=== PATIENT | male | born 1990 | race Caucasian/White ===

== ENCOUNTER 2021-01-19 10:31 | Outpatient (CLI) | payer OTHER, SELFPAY ==
--- NOTE | 2021-01-19 15:35 | P.NEURO_ITS ---
Neurology EEG Report General Information Date of Study: 01/19/21 TEST eeg DIAGNOSIS Seizure disorder CONDITION OF RECORDING awake drowsy and sleepy EEG NUMBER [id number] CLINICAL HISTORY patient reported he is on medication for seizures but has not had seizure in many years and wants to stop medications EEG DESCRIPTION basic resting occipital frequency consists of large amount of well-organized medium voltage 8 to 10 hertz per 2nd alpha admixed with minimal amount of low- voltage 15 to 18 hertz per 2nd beta. During drowsiness low-voltage beta activity seen diffusely admixed with waxing and waning posterior alpha rhythm. Hyperventilation not done. Photic stimulation produced normal drive. Bilateral symmetrical sleep activity seen during brief periods of sleep. Non paroxysmal. Nonfocal. Nonlateralizing. IMPRESSION Normal record with no evidence of seizure throughout the trace
== END 2021-01-19 10:32 | disposition home or self-care (01) ==
LOC: ANHNEURO 10:35
PROVIDERS: PCP Internal Medicine Infectious Disease; Visit Provider Psychiatry & Neurology Neurology
DX: R56.9 Unspecified convulsions (principal)
CPT/HCPCS: 95816

== ENCOUNTER 2022-03-14 09:33 | Outpatient (CLI) | payer OTHER, SELFPAY ==
--- NOTE | 2022-03-14 10:30 | NEURO_ITS ---
Impression: # History of bilateral hand numbness. # Bilateral Carpal Tunnel Syndrome. # Normal needle/EMG exam. # Clinical correlation recommended. Motor Nerve Conduction Upper Extremities Median Nerve Conduction Velocity (m/sec) Terminal Latency (msec) Response Voltage(mV) Elbow-Wrist Wrist Elbow Wrist Right 56 7.2 5 5 Left 56 8.2 3 4 Ulnar Nerve Conduction Velocity (m/sec) Terminal Latency (msec) Response Voltage(mV) Above Elbow Below Elbow Wrist Above Elbow Below Elbow Wrist Right 49 59 2.9 4 4 5 Left 51 51 2.7 5 6 6 F-Wave Latency Median (ms) Ulnar (ms) Right 28.5 28.9 Left 30.1 28.3 Sensory Nerve Conduction Upper Extremities Median Nerve Stimulation Terminal Latency (msec) Wrist/Digit Response Voltage (uV) Wrist Right 8.1/7.6 30/26 Left 7.2/8.1 34/26 Ulnar Nerve Stimulation Terminal Latency (msec) Wrist/Digit Response Voltage (uV) Wrist Right 3.2 22 Left 2.7 37 Radial Nerve Terminal Latency (msec) Response Voltage(mV) Right 2.1 28 Left 2.2 40 Left Right Muscles Examined Fibrillation Fasciculation Scarcity Voltage Duration Left Right Left Right Left Right Left Right Left Right Deltoid Biceps X X Brachioradialis Triceps X X Pronator Teres X X Ext Indicis X X Ext Digitorum X X Abd Poll Brev X X 1st Dorsal Interosseus Paraspinals MTDD
== END 2022-03-14 09:34 | disposition home or self-care (01) ==
LOC: ANHNEURO 09:34
PROVIDERS: PCP Internal Medicine Infectious Disease; Visit Provider Internal Medicine Infectious Disease
DX: G62.9 Polyneuropathy, unspecified (principal); G56.03 Carpal tunnel syndrome, bilateral upper limbs
CPT/HCPCS: 95886; 95911

== ENCOUNTER → 2024-01-13 13:15 | Outpatient (REF) | payer OTHER, SELFPAY | LOC: ANHLAB 13:15 | PROVIDERS: PCP Internal Medicine Infectious Disease; Visit Provider Plastic Surgery | DX: L72.11 Pilar cyst (principal) | CPT/HCPCS: 88305 ==

== ENCOUNTER 2024-04-07 10:07 | Outpatient (CLI) | payer OTHER, SELFPAY ==
[2024-04-07 10:57] LABS: Basophils Percent Auto 0.4 % (0.2-1.2); Eosinophils Absolute Auto 0.1 K/mm3 (0-0.3); Eosinophils Percent Auto 1.6 % (0-4.4); Hematocrit 45.7 % (42.0-52.0); Immature Granulocyte Absolute 0.03 K/mm3 (0.00-0.031); Immature Granulocyte Percent A 0.4 % (0-0.5); Lymphocytes Absolute Auto 1.21 K/mm3 (0.9-3.2); Lymphocytes Percent Auto 18.1 % (18.3-44.2); Mean Corpuscular HGB Conc 32.8 g/dl (32-36); Mean Corpuscular Hemoglobin 26.3 pg (26-34); Mean Corpuscular Volume 80.2 fl (80-100); Mean Platelet Volume 11.1 fl (7.4-10.4); Monocytes Absolute Auto 0.6 K/mm3 (0.1-0.6); Monocytes Percent Auto 9.6 % (2.6-8.5); Neutrophils Absolute Auto 4.7 K/mm3 (1.3-6.7); Neutrophils Percent Auto 69.9 % (45.5-73.1); Platelet Count Result 301 k/mm3 (150-375); Red Cell Distribution Width 13.3 % (11.5-14.5); White Blood Count 6.7 K/mm3 (4.5-10.0)
--- OUTSIDE RECORDS SUMMARY | 2024-04-07 11:00 | XMS_ITS | Clinical Summary ---
Author Organization [facility] Address [address] [place] [id number] Care Team Providers Care Blower Room Attendant Name Role Phone Felton Aguilar MD Primary Care Provider Allergies Active Allergy Reactions Criticality Noted Date Comments Diphenhydramine Swelling,Other (See comments) High 1 03/20/[address] (DEPAKOTE) 250 mg EC tablet Take 250 mg by mouth daily Active hydroCHLOROthiaz dariela (HYDRODIURIL) 12.5 mg tablet Take 25 mg by mouth daily Active lisinopriL (PRINIVIL,ZESTRI L) 5 mg tablet Take 10 mg by mouth daily Active Active Problems Problem Noted Date Diagnosed Date Phimosis 03/08/2021 Overview (03/08/2021): Added automatically from request for surgery [id number] Surgical History Surgery Date Site/Laterality Comments HIP SURGERY Right URINARY SURGERY 2021 Medical History Medical History Date Comments Hypertension Seizures (HCC) Asthma Mentally challenged Complication of general anesthesia Trouble waking up Family History Medical History Relation Name Comments Hypertension Other Seizures Other Relation Name Status Comments Other Social History Tobacco Use Types Packs/Day Years Used Date Smoking Tobacco: Never Smokeless Tobacco: Never AUDIT-C Answer Date Recorded Q1: How often do you have a drink containing alc ohol? Never 03/29/2021 Average Number of Drinks Not on file 022 Frequency of Binge Drinking Not on file 03/11 Sex and Gender Information Value Date Recorded Sex Assigned at Not on file Legal Sex Male 11:33 AM CDT Gender Identity Not on file Sexual Orientation Not on file Occupation Industry Job Start Date Job End Date Unemployed Not on file Not on file Not on file Obstetrics History Last Filed Vital Signs Vital Sign Reading Time Taken Comments Blood Pressure 126/79 04/26/2022 10:54 AM GOLF MANAGER Pulse 92 04/26/2022 10:54 AM GOLF MANAGER Temperature 36.7 ??C (98 ??F) 03/29/2021 3:49 PM GOLF MANAGER Respiratory Rate 16 03/29/2021 3:31 PM GOLF MANAGER Oxygen Saturation 97% 03/29/2021 3:31 PM GOLF MANAGER Inhaled Oxygen Concentration - - Weight 117.4 kg (258 lb 14.4 oz) 2022 10:54 AM GOLF MANAGER Height 177.8 cm (5' 10 ) 04/26/2022 10: 54 AM GOLF MANAGER Body Mass Index 37.15 04/26/2022 10:54 AM GOLF MANAGER Plan of Treatment Health Maintenance Due Date Last Done Comments Depression Screening 1989 Hepatitis C Screening 1989 Varicella Vaccines (1 of 2 - 13+ 2-dose series) 2002 Hepatitis B Screening 09/17/2007 Regular Well Visit/Exam 18-64 09/17/2007 DTaP/Tdap/Td Vaccine (2 - Td or Tdap) 03/10/2021 03/10/2011 Influenza Vaccine (#1) 2023 0, 02/13/2018, 01/22/2017, Additional history exists HPV Vaccines Aged Out No longer eligi ble based on patient's age to complete this topic Pneumococcal vaccine <65 Aged Out No longer eligible based on patient's age to complete this topic Insurance [facility] Care Teams Blower Room Attendant Relationship Specialty Start Date End Date Felton Aguilar MD [address] [place] [address] PCP - General Internal Medicine 01/09/21
--- OUTSIDE RECORDS SUMMARY | 2024-04-07 11:00 | XMS_ITS | CONTINUITY OF CARE DOCUMENT ---
Author Name anne marie eulaliadg Address Unknown Organization [facility] Address [address] [place] [address] Phone [phone] Care Team Providers Care Cardiac Rehabilitation Specialist Name Role Phone Sarita Moore MD Unavailable JAIRO EGLLER MD Unavailable JAIRO GELLER MD Unavailable PROBLEMS Condition Status Date Provider Notes Sinus tachycardia active Taylor Ventimiglia STEELSCOPE OPERATOR Hypertension benign essential active Taylor Ventimiglia STEELSCOPE OPERATOR Seizure disorder active Taylor Ventimiglia STEELSCOPE OPERATOR Obesity active Taylor Ventimiglia STEELSCOPE OPERATOR ALVIN, severe active Sarita Moore MD Cardiology examination active Sarita velazquez MD ENCOUNTERS Date Type Provider Location Encounter Diag nosis - In-person encounter Office Visit Sarita Moore MD [facility] Cardiology examination - In-person encounter Office Visit Sarita Moore MD [facility] - In-person encounter Office Visit Sarita Moore MD [facility] - In-person encounter Office Visit Sarita Moore MD [facility] - In-person encounter Office Visit Sarita Moore MD [facility] ALVIN, severe - In-person encounter Office Visit Sarita Moore MD [facility] Sinus tachycardiaHypertension benign essentialSeizure disorderObesity VITAL SIGNS Date Observation Value Provider Body Mass Index (Ratio) 41.76 kg/m2 Janelle Moore MD blood pressure, diastolic 100 mm[Hg] [facility], systolic 148 mm[Hg] Emily [facility] blood pressure, cuff size regular Сергей lopez Sr blood pressure, diastolic 100 mm[Hg] [facility], systolic 148 mm[Hg] [facility] [place] oxygen saturation, oximetry 98 % [facility] pulse rate 94 /min [facility] weight E&M 251 [lb_av] [facility] respiratory rate E&M 12 /min [facility] height E&M 65 [in_i] [facility] Body Mass Index (Ratio) 41.76 kg/m2 Janelle Moore MD blood pressure, diastolic 101 mm[Hg] [facility], systolic 158 mm[Hg] Emily [facility] blood pressure, cuff size regular [facility], diastolic 101 mm[Hg] Ja rret blood pressure, systolic 158 mm[Hg] Jar ret pulse rate 85 /min Reji respiratory rate E&M 12 /min Reji oxygen saturation, oximetry 96 % Reji weight E&M 251 [lb_av] Reji y height E&M 65 [in_i] Reji y Body Mass Index (Ratio) 44.09 kg/m2 Janelle Moore MD blood pressure, diastolic 94 mm[Hg] Sh deb Linda blood pressure, systolic 159 mm[Hg] She go Linda blood pressure, diastolic 100 mm[Hg] Li [facility] blood pressure, systolic 167 mm[Hg] Emily [facility] pulse rate 100 /min Mariajose Linda oxygen saturation, oximetry 97 % Mariajose Lidna respiratory rate E&M 18 /min Mariajose Linda weight E&M 265 [lb_av] Mariajose Linda blood pressure, cuff size regular Fariha Linda height E&M 65 [in_i] Mariajose Linda Body Mass Index (Ratio) 42.26 kg/m2 Ivett castro Bc blood pressure, cuff size large Ke rri Gruenenfelder blood pressure, diastolic 90 mm[Hg] Ke rri Gruenenfelder blood pressure, systolic 132 mm[Hg] Tim ri Yolanenfelder oxygen saturation, oximetry 97 % Beth Chela respiratory rate E&M 14 /min Beth G brittanienenfelder pulse rate 85 /min Beth Gruenenfe er weight E&M 254 [lb_av] Beth Gruenenfe er height E&M 65 [in_i] Beth Gruenenfe er Body Mass Index (Ratio) 43.26 kg/m2 Cesar Gonzales blood pressure, diastolic -1 mm[Hg] Li nkLogic blood pressure, systolic 158 mm[Hg] Emily [facility] blood pressure, diastolic 93 mm[Hg] St fela Hickman blood pressure, systolic 158 mm[Hg] Bruce Hickman oxygen saturation, oximetry 96 % Kassandra Hickman pulse rate 96 /min Kassandra Dorado n weight E&M 260 [lb_av] Kassandra Dorado n respiratory rate E&M 16 /min Azeem Hickman blood pressure, cuff size large St fela Hickman height E&M 65 [in_i] Kassandra Dorado n Body Mass Index (Ratio) 42.60 kg/m2 Ivett Yancey blood pressure, cuff size large Kulwant Ramsey blood pressure, diastolic 80 mm[Hg] Tr acy [facility] blood pressure, systolic 120 mm[Hg] Tra saskia [facility] oxygen saturation, oximetry 98 % Chel [facility] weight E&M 256 [lb_av] Chel [facility] height E&M 65 [in_i] Chel [facility] ALLERGIES Allergy Name Onset Date Reaction Criticality Status BENADRYL High Criticality active HISTORY OF MEDICATION USE Medication Status Instructions Dates Provider Indications Com ments lisinopril-hydrochloro thiazide 20-25 mg tablet active Take 1 tablet by mouth once a day [facility] lisinopril 10 mg tablet completed Take 1 tablet by mouth once a day - [facility] hydrochlorothiazide 25 mg tablet completed Take 1 tablet by mouth once a day - [facility] divalproex 250 mg tablet,delayed release (DR/EC) active Take 1 tablet by mouth every 48 hours [facility] SOCIAL HISTORY Date Observation Value Provider drug use no Ashleigh Nalluri ROLL PLUGGER alcohol use no Ashleigh Nalluri ROLL PLUGGER smoking status Never smoker Ashleigh Nallu ri ROLL PLUGGER drug use no Sarita Moore MD alcohol use no Sarita Moore MD smoking status Never smoker Sarita velazquez MD social history reviewed E&M revi ewed - no changes required Sarita Moore MD social history E&M S moking History: Jody daniels has never smoked. Sarita Moore MD smoking status Never smoker Mariajose Linda social history E&M S moking History: Jody daniels has never smoked. Shannon Yancey social history reviewed E&M revi ewed - no changes required Shannon Yancey smoking status Never smoker Beth dumont number of grandchildren Sarita Moore MD social history E&M S moking History: Jody daniels has never smoked. Sarita Moore MD social history reviewed E&M revi ewed - no changes required Sarita Moore MD smoking status Never smoker Kassandra martin social history E&M S moking History: Jody daniels has never smoked. Shannon Yancey social history reviewed E&M revi ewed - no changes required Shannon Yancey drug use no Taylor Ventimig emmanuel STEELSCOPE OPERATOR alcohol use no Taylor Ventimig emmanuel STEELSCOPE OPERATOR smoking status Never smoker Taylor Ventim iglia [facility] Payer name Policy type / Coverage type [facility] libertarian [place] [employer]ICA[employer] (2) Medicaid [id number] ADVANCE DIRECTIVES Name Date DISCUSSED - NO DECISION MADE TREATMENT PLAN Date Name Performer [id number],C,H R 100 today. Will continue to monitor Sarita Moore MD [id number],C,S tarted on lisinopril 20 mg-hydrochlorothiazide 25 last . He is monitoring BP at home and states it typically runs 140/80, the lowest it has been is 130/80. Advised to continue monitoring and bring in numbers. BP today: 159/94 P rior BP: 132/90 (07/03/2022) His updated medication list for this problem includes: Hydrochlorothiazide 25 Mg Tablet (Hydrochlorothiazide) ..... Take 1 tablet by mouth once a day Lisinopril 10 Mg Tablet (Lisinopril) ..... Take 1 tablet by mouth once a day Sarita Moore MD [id number],C,W eight loss advised. Sarita Moore MD [id number],C,H e is sleeping with CPAP for approximately 5 hours each night. Feels quite good during the day and is tolerating well. Sarita Moore MD [id number],C, R eceived his CPAP today , will begin using it this evening. He has not had any new episodes since last visit. Shannon Yancey [id number],S, W eight loss advised. Shannon Bc [id number],C, H e has received his CPAP today. He was educated on the usage of his machine. Shannon Bc [id number],C,B P is markedly elevated today at 132/90. Advised reduced sodium intake and routine monitoring of the blood pressure. We aim for less than 130/80. Improved from last visit. Should continue to improve with the use of the CPAP. Shannon Bc [id number],N, N ew diagnosis. He would certainly benefit from being titrated for a CPAP to control his BP, HR, SOB, and weight. Sarita Moore MD [id number],W, B P is elevated today. Continues on lisinopril and HCTZ. We aim for a BP of 130/80 or lower. Sarita Moore MD [id number],W, H is holter monitor showed sinus rhythm and sinus tachcyardia with an average HR of 89bpm, range 69-130bpm. His mother is concerned about the elevated HRs. We will get him set up with a CPAP. He may alsop benefit from a beta hung if his symptoms persist after getting started on CPAP. Sarita Moore MD [id number],S, W eight loss advised. Sarita Moore MD [id number],C, H is updated medication list for this problem includes: Divalproex 250 Mg Tablet,delayed Release (dr/ec) (Divalproex) [facility] [id number],C,P atfelipe does have obesity with weight of 256 lbs in office today. concern with his tachycardia, sob and obesity for underlying ALVIN will plan for home sleep study. Iifestyle modification encouraged. O rders: 9203 MOD 45-59 min (CPT-63278) H olter Monitor 48 hr (CPT-89165) S leep Study Home (CPT-11873) C OMPREHENSIVE METABOLIC PANEL, W/EGFR (37939) P ROBNP, N TERMINAL (92733) T SH, free T4, total T3 (7444) L IPID PANEL (7600) C BC (INCLUDES DIFF/PLT) (6399) H EMOGLOBIN A1c (496) C omplete Echo (CPT-43974) [facility] [id number],C,b lood pressure controlled 120/80 today. Will continue to monitor at home. H is updated medication list for this problem includes: Lisinopril 5 Mg Tablet (Lisinopril) Hydrochlorothiazide 25 Mg Tablet (Hydrochlorothiazide) [place] [facility] [id number],C,P atfelipe denies any associated palpitations. Had recent EKG at hospital that showed NSR no ST/T wave changes rate of 91. He does seem to be deconditioned which may be contributing. He is SOB with minimal activity such as ambulation. Given that we will do some testing with labs, echo, tele and sleep study to r/o any other underlying causes for symptoms. He will return post testing or sooner if needed. H is updated medication list for this problem includes: Lisinopril 5 Mg Tablet (Lisinopril) Orders: 9203 MOD 45-59 min (CPT-48289) H olter Monitor 48 hr (CPT-89593) S [facility] Study Home (CPT-32534) C OMPREHENSIVE METABOLIC PANEL, W/EGFR (67733) P ROBNP, N TERMINAL (66871) T SH, free T4, total T3 (3144) L IPID PANEL (7600) C BC (INCLUDES DIFF/PLT) (6399) H EMOGLOBIN A1c (496) C omplete Echo (CPT-39784) Taylor Glasgow STEELSCOPE OPERATOR Cardiology:In SR today Ashleigh Padmini rneeeuri ROLL PLUGGER Cardiology: B P today: 148/100 P rior BP: 158/101 (04/30/2023) Reports at at home Bp has been at 130/80's Ashleigh Nalluri ROLL PLUGGER Cardiology: H is updated medication list for this problem includes: Divalproex 250 Mg Tablet,delayed Release (dr/ec) (Divalproex) ..... Take 1 tablet by mouth every 48 hours Ashleigh Nalluri ROLL PLUGGER Cardiology: W eight loss advised. Ashleigh Nalluri ROLL PLUGGER Cardiology: Edilma zhong is sleeping with CPAP for approximately 5 hours each night. Feels quite good during the day and is tolerating well. Ashleigh Jane NP Cardiology:bpm 85 today Sarita Moore MD Cardiology: W eight loss advised. Sarita Moore MD Cardiology: Edilma zhong is sleeping with CPAP for approximately 5 hours each night. Feels quite good during the day and is tolerating well. Sarita Moore MD Cardiology:Instructe d pt to begin monitoring BP at home. Reports at home it has been about 130/80 at home. BP today: 158/101 P rior BP: 167/100 (10/30/2022) The following medications were removed from the medication list: Hydrochlorothiazide 25 Mg Tablet (Hydrochlorothiazide) ..... Take 1 tablet by mouth once a day Lisinopril 10 Mg Tablet (Lisinopril) ..... Take 1 tablet by mouth once a day His updated medication list for this problem includes: Lisinopril-hydrochlorothiazide 20-25 Mg Tablet (Lisinopril-hydrochlorothiazide) ..... Take 1 tablet by mouth once a day Sarita Moore MD Cardiology:HR 100 today. Will co ntinue to monitor Sarita Moore MD Cardiology:Started o n lisinopril 20 mg-hydrochlorothiazide 25 last . He is monitoring BP at home and states it typically runs 140/80, the lowest it has been is 130/80. Advised to continue monitoring and bring in numbers. BP today: 159/94 P rior BP: 132/90 (07/03/2022) His updated medication list for this problem includes: Hydrochlorothiazide 25 Mg Tablet (Hydrochlorothiazide) ..... Take 1 tablet by mouth once a day Lisinopril 10 Mg Tablet (Lisinopril) ..... Take 1 tablet by mouth once a day Sarita Moore MD Cardiology:Weight lo ss advised. Sarita Moore MD Cardiology:He is sle eping with CPAP for approximately 5 hours each night. Feels quite good during the day and is tolerating well. Sarita Moore MD Cardiology: R eceived his CPAP today , will begin using it this evening. He has not had any new episodes since last visit. Shannon Yancey Cardiology: W eight loss advised. Shannon Yancey Cardiology: Edilma farheen has received his CPAP today. He was educated on the usage of his machine. Shannon Yancey Cardiology:BP is mar kedly elevated today at 132/90. Advised reduced sodium intake and routine monitoring of the blood pressure. We aim for less than 130/80. Improved from last visit. Should continue to improve with the use of the CPAP. Shannon Yancey Cardiology: N ew diagnosis. He would certainly benefit from being titrated for a CPAP to control his BP, HR, SOB, and weight. Sarita Moore MD Cardiology: B P is elevated today. Continues on lisinopril and HCTZ. We aim for a BP of 130/80 or lower. Sarita Moore MD Cardiology: H is holter monitor showed sinus rhythm and sinus tachcyardia with an average HR of 89bpm, range 69-130bpm. His mother is concerned about the elevated HRs. We will get him set up with a CPAP. He may alsop benefit from a beta hung if his symptoms persist after getting started on CPAP. Sarita Moore MD Cardiology: W eight loss advised. Sarita Moore MD Cardiology: H is updated medication list for this problem includes: Divalproex 250 Mg Tablet,delayed Release (dr/ec) (Divalproex) [facility] Cardiology:Patient d oes have obesity with weight of 256 lbs in office today. concern with his tachycardia, sob and obesity for underlying ALVIN will plan for home sleep study. Iifestyle modification encouraged. O rders: 9 9204 MOD 45-59 min (CPT-59170) H olter Monitor 48 hr (CPT-97619) S leep Study Home (CPT-18492) C OMPREHENSIVE METABOLIC PANEL, W/EGFR (90172) P ROBNP, N TERMINAL (25800) T SH, free T4, total T3 (7444) L IPID PANEL (7600) C BC (INCLUDES DIFF/PLT) (6399) H EMOGLOBIN A1c (496) C omplete Echo (CPT-67502) [facility] Cardiology:blood pre ssure controlled 120/80 today. Will continue to monitor at home. H is updated medication list for this problem includes: Lisinopril 5 Mg Tablet (Lisinopril) Hydrochlorothiazide 25 Mg Tablet (Hydrochlorothiazide) Taylor Myah [facility] Cardiology:Patient d enies any associated palpitations. Had recent EKG at hospital that showed NSR no ST/T wave changes rate of 91. He does seem to be deconditioned which may be contributing. He is SOB with minimal activity such as ambulation. Given that we will do some testing with labs, echo, tele and sleep study to r/o any other underlying causes for symptoms. He will return post testing or sooner if needed. H is updated medication list for this problem includes: Lisinopril 5 Mg Tablet (Lisinopril) Orders: 9 9204 MOD 45-59 min (CPT-38921) H olter Monitor 48 hr (CPT-32424) S lee Study Home (CPT-98805) C OMPREHENSIVE METABOLIC PANEL, W/EGFR (85752) P ROBNP, N TERMINAL (76578) T SH, free T4, total T3 (7444) L IPID PANEL (7600) C BC (INCLUDES DIFF/PLT) (6399) H EMOGLOBIN A1c (496) C omplete Echo (CPT-45304) Taylor Ventimiglia STEELSCOPE OPERATOR Date Name Sleep Study Titratio n Complete Echo HEMOGLOBIN A1c CBC (INCLUDES DIFF/P LT) LIPID PANEL TSH, free T4, total T3 PROBNP, N TERMINAL COMPREHENSIVE METABO LIC PANEL, W/EGFR Sleep Study Home Holter Monitor 48 hr HISTORY OF PROCEDURES Procedure Date Procedure Name Provider Procedure Notes S tatus Complex e/m visit add on Sarita Moore MD completed EKG Sarita Moore MD complet ed EKG Sarita Moore MD complet ed EKG Sarita Moore MD complet ed EKG Sarita Moore MD complet ed EKG Sarita Moore MD complet ed
--- OUTSIDE RECORDS SUMMARY | 2024-04-07 11:00 | XMS_ITS | Referral Summary ---
Author Organization [facility] Address [address] [place] [id number] Care Team Providers Care Spinning Frame Cleaner Name Role Phone Felton Aguilar MD Primary [...] (03/08/2021): Added automatically from request for surgery [id number] Social History Tobacco Use Types Packs/Day Years [...] file Not on file Not on file Last Filed Vital Signs Vital Sign Reading Time Taken Comments Blood Pressure 126/79 04/26/2022 10:54 AM POSITION DESCRIPTION MANAGER Pulse 92 04/26/2022 10:54 AM POSITION DESCRIPTION MANAGER Temperature 36.7 ??C (98 ??F) 03/29/2021 3:49 PM POSITION DESCRIPTION MANAGER Respiratory Rate 16 03/29/2021 3:31 PM POSITION DESCRIPTION MANAGER Oxygen Saturation 97% 03/29/2021 3:31 PM POSITION DESCRIPTION MANAGER Inhaled Oxygen Concentration - - Weight 117.4 kg (258 lb 14.4 oz) 2022 10:54 AM POSITION DESCRIPTION MANAGER Height 177.8 cm (5' 10 ) 04/26/2022 10: 54 AM POSITION DESCRIPTION MANAGER Body Mass Index 37.15 04/26/2022 10:54 AM POSITION DESCRIPTION MANAGER Plan of Treatment Not on file Insurance [id number] [place] [address] Care Teams Spinning Frame Cleaner Relationship Specialty Start Date End Date Felton Aguilar MD [address] [facility] [address] [place] [address] PCP - General Internal Medicine 01/09/21
--- OUTSIDE RECORDS SUMMARY | 2024-04-07 11:00 | XMS_ITS | Data Portability ---
Author Organization [facility] VALERIADemetrius WhitleyWindber [facility] Address [address] [place] [address] Care Team Providers Care Director On Air Name Role Phone FELTON GELLER Primary Care Provider Assessment No assessment recorded. Plan of Treatment Reminders Order Date Submit Date Provider Last Modified By Organization Details Last Modified Time Details Appointments None recorded. Lab CBC w/ auto diff 2022 023 [facility], [facility] [address], [address], [place], [address], 3 15:10:11 lipid panel, serum 2022 023 [facility], [address] [facility] [address], [address], [place], [address], 3 15:10:08 CMP, serum or plasma 2022 023 [facility], [address] [facility] [address], [address], [place], [address], 3 15:10:09 urinalysis, dipstick 2022 023 [facility], [address] [facility] [address], [address], [place], [address], 3 15:10:11 valproic acid, total, serum 2023 024 [facility], [address] [facility] [address], [address], [place], [address], 4 08:23:19 HbA1c (hemoglobin A1c), blood 2023 024 [facility], [address] [place] [address], [address], [place], [address], 4 08:23:17 TSH, ultra-sensi tive, serum 2023 024 [facility], [address] [place] [address], [address], [place], [address], 4 08:23:18 hemoglobin + hematocrit, blood 2023 024 [facility], [address] [place] [address], [address], [place], [address], 4 06:19:27 hemoglobin + hematocrit, blood 2023 024 [facility], [address] [place] [address], [address], [place], [address], 4 14:46:29 rapid influenza virus A + B and SARS CoV + SARS CoV 2 Ag panel, IA, upper respiratory specimen 2023 024 [facility], [address] [place], [address], 4 12:45:55 Referral physical therapist referral - L. sided LBP with radiation to (from?) the L. knee 2023 024 [facility], [address] [place], [address], 4 19:21:01 appraiser timber referral - Hx of possible spina bifida with deviated right foot and calluses 2023 024 JV Bucky Zurita DPM, [address] [facility], [place], [address], 4 15:12:56 plastic surgeon referral 2023 024 JV Lopez MD, [address] [facility] [address], [place], [address], 4 14:33:39 Procedures None recorded. Surgeries None recorded. Imaging XR, knee - L. knee pain 2023 024 [facility]), [address] [place], [address], 4 15:12:02 XR, lumbosacral spine - L. sided LBP with radiation to (from?) the L. knee 2023 024 [facility]), [address] [place], [address], 4 15:12:45 Medication Orders lisinopril 20 mg-hydrochl orothiazide 25 mg tablet 2022 023 [facility] #[id number], [address], [place], [place], [id number], 3 18:50:01 lisinopril 20 mg-hydrochl orothiazide 25 mg tablet 2023 024 [facility] #53670, [address], [place], [place], [id number], 4 15:22:10 amlodipine 5 mg tablet 2023 024 [facility]80406, [address], [place], [place], [id number], 4 16:04:11 amlodipine 5 mg tablet 2023 024 [facility] #21683, [address], [place], [place], [id number], 15:11:37 lisinopril 20 mg-hydrochl orothiazide 25 mg tablet 2023 [facility] #35494, [address], [place], [place], [id number], 15:11:36 Patient TargetsNo targets recorded. Patient Instructions Encounter Date Encounter Id Patient Instructions Last Modified By Organization Details Last Modified Time 10/22/2022 [id number] sleep apnea: car e instructions oajao Not available 10/22/2022 19:04:51 learning about high blood pressure oajao Not available 10/22/2022 16:21:56 Stop Lisinopril 10 mg, stop HCTZ 25 mg Start Lisinopril/HCTZ 20/25 mg BP check/Labs in 3-4 weeks Follow up in 6 months and PRN oajao Not available 10/22/2022 19:07:51 03/26/2023 [id number] body mass index: care instructions oajao Not available 03/26/2023 15:37:57 learning about healthy weight oajao Not available 03/26/2023 15:37:57 Labs PT Podiatry Follow up in 6 months and PRN oajao Not available 03/26/2023 15:39:08 09/24/2023 [id number] Page 1 of the cardiology consultation Follow up in 6 weeks with your blood pressure log oajao Not available 09/24/2023 15:20:03 11/06/2023 [id number] upper respirator y infection (cold): care instructions oajao Not available 11/06/2023 16:04:26 learning about high blood pressure oajao Not available 11/06/2023 16:20:31 Amlodipine 5 mg Continue Lisinopril/HCTZ [facility] up in 4 weeks oajao Not available 11/06/2023 16:08:06 12/22/2023 [id number] Follow up in 6 months and PRN oajao Not available 12/22/2023 15:11:38 Reason for Referral Physical Therapist Referral for Lumbar radiculopathy L. sided LBP with radiation to (from?) the L. knee L. sided LBP with radiation to (from?) the L. knee Referring Physician: Felton Geller, Internal Medicine, Encounter Date: 03/26/2023 Co Founder And Chairman Referral for Foot callus Hx of possible spina bifida with deviated right foot and calluses Hx of possible spina bifida with deviated right foot and calluses Referring Physician: Felton Geller, Internal Medicine, Encounter Date: 03/26/2023 Plastic Surgeon Referral for Lesion of scalp CHRONIC SCALP LESION Referring Physician: Felton Geller, Internal Medicine, Encounter Date: 11/06/2023 Results Created Date Observation Date Name Description Value Unit Range Abnormal Flag Note LastModifiedBy Organization Detail LastModifiedTime 02/11/2002/11/2023 LIPID PANEL cholesterol, total 105 mg/dL 100-19 9 Not Available [facility] ([facility]) [address] [place], [address], 02/11/2023 15:10:08 02/11/2002/11/2023 LIPID PANEL triglyceride s 95 mg/dL 0-149 Not Available [facility] ([facility]) [address] [place], [address], 02/11/2023 15:10:08 02/11/20 23 02/11/2023 LIPID PANEL HDL cholesterol 34 mg/dL >39 below low normal Not Available [facility] ([facility]) [address] [place], [address], 02/11/2023 15:10:08 02/11/20 23 02/11/2023 LIPID PANEL VLDL cholesterol salomón 18 mg/dL 5-40 Not Available [facility] ([facility]) [address] [place], [address], 02/11/2023 15:10:08 02/11/20 23 02/11/2023 LIPID PANEL LDL chol calc ([facility]) 53 mg/dL 0-99 Not Available [facility]) [address] [place], [address], 02/11/2023 15:10:08 02/11/20 23 02/11/2023 COMP. METAB OLIC PANEL (14) glucose 83 mg/dL 70-99 Not Available [facility] ([facility]) [address] [place], [address], 02/11/2023 15:10:09 02/11/20 23 02/11/2023 COMP. METAB OLIC PANEL (14) BUN 10 mg/dL 6-20 Not Available [facility] ([facility]) [address] [place], [address], 02/11/2023 15:10:09 02/11/20 23 02/11/2023 COMP. METAB OLIC PANEL (14) creatinine 0.94 mg/dL 0.76-1 .27 Not Available [facility] ([facility]) [address] [place], [address], 02/11/2023 15:10:09 02/11/20 23 02/11/2023 COMP. METAB OLIC PANEL (14) eGFR 110 mL/mi n/1.7 3 >59 Not Available [facility] ([facility]) [address] [place], [address], 02/11/2023 15:10:09 02/11/20 23 02/11/2023 COMP. METAB OLIC PANEL (14) BUN/creatini ne ratio 11 9-20 Not Available [facility] ([facility]) [address] [place], [address], 02/11/2023 15:10:09 02/11/20 23 02/11/2023 COMP. METAB OLIC PANEL (14) sodium 142 mmol/ L 134-14 4 Not Available [facility] ([facility]) [address] [place], [address], 02/11/2023 15:10:09 02/11/20 23 02/11/2023 COMP. METAB OLIC PANEL (14) potassium 4.5 mmol/ L 3.5-5. 2 Not Available [facility] ([facility]) [address] [place], [address], 02/11/2023 15:10:09 02/11/20 23 02/11/2023 COMP. METAB OLIC PANEL (14) chloride 102 mmol/ L 96-106 Not Available [facility] ([facility]) [address] [place], [address], 02/11/2023 15:10:09 02/11/20 23 02/11/2023 COMP. METAB OLIC PANEL (14) carbon dioxide, total 24 mmol/ L 20-29 Not Available [facility] ([facility]) [address] [place], [address], 02/11/2023 15:10:09 02/11/20 23 02/11/2023 COMP. METAB OLIC PANEL (14) calcium 9.6 mg/dL 8.7-10 .2 Not Available [facility] ([facility]) [address] [place], [address], 02/11/2023 15:10:09 02/11/20 23 02/11/2023 COMP. METAB OLIC PANEL (14) protein, total 7.5 g/dL 6.0-8. 5 Not Available [facility] ([facility]) [address] [place], [address], 02/11/2023 15:10:09 02/11/20 23 02/11/2023 COMP. METAB OLIC PANEL (14) albumin 4.6 g/dL 4.1-5. 1 Not Available [facility] ([facility]) [address] [place], [address], 02/11/2023 15:10:09 02/11/20 23 02/11/2023 COMP. METAB OLIC PANEL (14) globulin, total 2.9 g/dL 1.5-4. 5 Not Available [facility] ([facility]) [address] [facility], [place], [address], 02/11/2023 15:10:09 02/11/20 23 02/11/2023 COMP. METAB OLIC PANEL (14) A/G ratio 1.6 1.2-2. 2 Not Available [facility] ([facility]) [address] [facility], [place], [address], 02/11/2023 15:10:09 02/11/20 23 02/11/2023 COMP. METAB OLIC PANEL (14) bilirubin, total 0.4 mg/dL 0.0-1. 2 Not Available [facility] ([facility]) [address] [facility], [place], [address], 02/11/2023 15:10:09 02/11/20 23 02/11/2023 COMP. METAB OLIC PANEL (14) alkaline phosphatase 87 IU/L 44-121 Not Available [facility]) [address] [facility], [place], [address], 02/11/2023 15:10:09 02/11/20 23 02/11/2023 COMP. METAB OLIC PANEL (14) AST (SGOT) 20 IU/L 0-40 Not Available [facility] ([facility]) [address] [facility], [place], [address], 02/11/2023 15:10:09 02/11/20 23 02/11/2023 COMP. METAB OLIC PANEL (14) ALT (SGPT) 21 IU/L 0-44 Not Available [facility] ([facility]) [address] [facility], [place], [address], 02/11/2023 15:10:09 02/11/20 23 02/11/2023 URINA LYSIS , ROUTI NE specific gravity 1.025 1.005- 1.030 Not Available [facility] ([facility]) [address] [place], [address], 02/11/2023 15:10:11 02/11/20 23 02/11/2023 URINA LYSIS , ROUTI NE pH 6.0 5.0-7. 5 Not Available [facility] ([facility]) [address] [facility], [place], [address], 02/11/2023 15:10:11 02/11/2002/11/2023 URINA LYSIS , ROUTI NE urine-color YELLOW yellow Not Available [facility] ([facility]) [address] [place], [address], 02/11/2023 15:10:11 02/11/20 23 02/11/2023 URINA LYSIS , ROUTI NE appearance CLEAR clear Not Available [facility] ([facility]) [address] [place], [address], 02/11/2023 15:10:11 02/11/20 23 02/11/2023 URINA LYSIS , ROUTI NE WBC esterase 1+ negati ve abnormal Not Available [facility] ([facility]) [address] [place], [address], 02/11/2023 15:10:11 02/11/20 23 02/11/2023 URINA LYSIS , ROUTI NE protein NEGATI VE negati ve/tra ce Not Available [facility] ([facility]) [address] [place], [address], 02/11/2023 15:10:11 02/11/20 23 02/11/2023 URINA LYSIS , ROUTI NE glucose NEGATI VE negati ve Not Available [facility] ([facility]) [address] [place], [address], 02/11/2023 15:10:11 02/11/20 23 02/11/2023 URINA LYSIS , ROUTI NE ketones NEGATI VE negati ve Not Available [facility] ([facility]) [address] [place], [address], 02/11/2023 15:10:11 02/11/20 23 02/11/2023 URINA LYSIS , ROUTI NE occult blood NEGATI VE negati ve Not Available [facility] ([facility]) [address] [place], [address], 02/11/2023 15:10:11 02/11/20 23 02/11/2023 URINA LYSIS , ROUTI NE bilirubin NEGATI VE negati ve Not Available [facility] ([facility]) [address] [facility], [place], [address], 02/11/2023 15:10:11 02/11/20 23 02/11/2023 URINA LYSIS , ROUTI NE urobilinogen ,semi-qn 1.0 mg/dL 0.2-1. 0 Not Available [facility] ([facility]) [address] [place], [address], 02/11/2023 15:10:11 02/11/20 23 02/11/2023 URINA LYSIS , ROUTI NE nitrite, urine NEGATI VE negati ve Not Available [facility] ([facility]) [address] [place], [address], 02/11/2023 15:10:11 02/11/20 23 02/11/2023 URINA LYSIS , ROUTI NE microscopic examination SEE BELOW: Micro scopi c was indic ated and was perfo rmed. Not Available [facility] ([facility]) [address] [place], [address], 02/11/2023 15:10:11 02/11/20 23 02/10/2023 CBC WITH DIFFE RENTI AL/PL ATELE T WBC 8.9 x10e3 /uL 3.4-10 .8 Not Available [facility] ([facility]) [address] [place], [address], 02/11/2023 15:10:11 02/11/20 23 02/10/2023 CBC WITH DIFFE RENTI AL/PL ATELE T RBC 6.67 x10e6 /uL 4.14-5 .80 above high normal Not Available [facility] ([facility]) [address] [place], [address], 02/11/2023 15:10:11 02/11/20 23 02/10/2023 CBC WITH DIFFE RENTI AL/PL ATELE T hemoglobin 17.5 g/dL 13.0-1 7.7 Not Available [facility] ([facility]) [address] [place], [address], 02/11/2023 15:10:11 02/11/20 23 02/10/2023 CBC WITH DIFFE RENTI AL/PL ATELE T hematocrit 53.2 % 37.5-5 1.0 above high normal Not Available [facility] ([facility]) [address] [place], [address], 02/11/2023 15:10:11 02/11/20 23 02/10/2023 CBC WITH DIFFE RENTI AL/PL ATELE T MCV 80 fL 79-97 Not Available [facility] ([facility]) [address] [place], [address], 02/11/2023 15:10:11 02/11/20 23 02/10/2023 CBC WITH DIFFE RENTI AL/PL ATELE T MCH 26.2 pg 26.6-3 3.0 below low normal Not Available [facility] ([facility]) [address] [place], [address], 02/11/2023 15:10:11 02/11/20 23 02/10/2023 CBC WITH DIFFE RENTI AL/PL ATELE T MCHC 32.9 g/dL 31.5-3 5.7 Not Available [facility] ([facility]) [address] [facility], [place], [address], 02/11/2023 15:10:11 02/11/20 23 02/10/2023 CBC WITH DIFFE RENTI AL/PL ATELE T RDW 14.8 % 11.6-1 5.4 Not Available [facility] ([facility]) [address] [facility], [place], [address], 02/11/2023 15:10:11 02/11/20 23 02/10/2023 CBC WITH DIFFE RENTI AL/PL ATELE T platelets 394 x10e3 /uL 150-45 0 Not Available [facility] ([facility]) [address] [facility], [place], [address], 02/11/2023 15:10:11 02/11/20 23 02/10/2023 CBC WITH DIFFE RENTI AL/PL ATELE T neutrophils 68 % notest ab. Not Available [facility] ([facility]) [address] [facility], [place], [address], 02/11/2023 15:10:11 02/11/20 23 02/10/2023 CBC WITH DIFFE RENTI AL/PL ATELE T lymphs 22 % notest ab. Not Available [facility] ([facility]) [address] [facility], [place], [address], 02/11/2023 15:10:11 02/11/20 23 02/10/2023 CBC WITH DIFFE RENTI AL/PL ATELE T monocytes 8 % notest ab. Not Available [facility] ([facility]) [address] [facility], [place], [address], 02/11/2023 15:10:11 02/11/20 23 02/10/2023 CBC WITH DIFFE RENTI AL/PL ATELE T eos 1 % notest ab. Not Available [facility] ([facility]) [address] [facility], [place], [address], 02/11/2023 15:10:11 02/11/20 23 02/10/2023 CBC WITH DIFFE RENTI AL/PL ATELE T basos 0 % notest ab. Not Available [facility] ([facility]) [address] [facility], [place], [address], 02/11/2023 15:10:11 02/11/20 23 02/10/2023 CBC WITH DIFFE RENTI AL/PL ATELE T neutrophils (absolute) 6.1 x10e3 /uL 1.4-7. 0 Not Available [facility] ([facility]) [address] [facility], [place], [address], 02/11/2023 15:10:11 02/11/20 23 02/10/2023 CBC WITH DIFFE RENTI AL/PL ATELE T lymphs (absolute) 1.9 x10e3 /uL 0.7-3. 1 Not Available [facility] ([facility]) [address] [facility], [place], [address], 02/11/2023 15:10:11 02/11/20 23 02/10/2023 CBC WITH DIFFE RENTI AL/PL ATELE T monocytes(ab solute) 0.7 x10e3 /uL 0.1-0. 9 Not Available [facility] ([facility]) [address] [facility], [place], [address], 02/11/2023 15:10:11 02/11/20 23 02/10/2023 CBC WITH DIFFE RENTI AL/PL ATELE T eos (absolute) 0.1 x10e3 /uL 0.0-0. 4 Not Available [facility] ([facility]) [address] [facility], [place], [address], 02/11/2023 15:10:11 02/11/20 23 02/10/2023 CBC WITH DIFFE RENTI AL/PL ATELE T baso (absolute) 0.0 x10e3 /uL 0.0-0. 2 Not Available [facility] ([facility]) [address] [facility], [place], [address], 02/11/2023 15:10:11 02/11/20 23 02/10/2023 CBC WITH DIFFE RENTI AL/PL ATELE T immature granulocytes 1 % notest ab. Not Available [facility] ([facility]) [address] [facility], [place], [address], 02/11/2023 15:10:11 02/11/20 23 02/10/2023 CBC WITH DIFFE RENTI AL/PL ATELE T immature grans (abs) 0.1 x10e3 /uL 0.0-0. 1 Not Available [facility] ([facility]) [address] [facility], [place], [address], 02/11/2023 15:10:11 02/11/20 23 02/11/2023 MICRO SCOPI C EXAMI NATIO N WBC 0-5 /hpf 0-5 Not Available [facility] ([facility]) [address] [facility], [place], [address], 02/11/2023 15:10:10 02/11/20 23 02/11/2023 MICRO SCOPI C EXAMI NATIO N RBC NONE SEEN /hpf 0-2 Not Available [facility] ([facility]) [address] [facility], [place], [address], 02/11/2023 15:10:10 02/11/20 23 02/11/2023 MICRO SCOPI C EXAMI NATIO N epithelial cells (non renal) 0-10 /hpf 0-10 Not Available [facility]) [address] [facility], [place], [address], 02/11/2023 15:10:10 02/11/20 23 02/11/2023 MICRO SCOPI C EXAMI NATIO N casts NONE SEEN /lpf nonese en Not Available [facility] ([facility]) [address] [facility], [place], [address], 02/11/2023 15:10:10 02/11/20 23 02/11/2023 MICRO SCOPI C EXAMI NATIO N bacteria NONE SEEN nonese en/few Not Available [facility] ([facility]) [address] [facility] [place], [address], 02/11/2023 15:10:10 03/26/19 24 03/27/2023 HGB+H CT hemoglobin 17.7 g/dL 13.0-1 7.7 Not Available [facility] ([facility]) [address] [facility] [place], [address], 03/27/2023 06:19:27 03/26/19 24 03/27/2023 HGB+H CT hematocrit 53.2 % 37.5-5 1.0 above high normal Not Available [facility] ([facility]) [address] [place], [address], 03/27/2023 06:19:27 03/26/19 24 03/27/2023 HEMOG LOBIN A1C hemoglobin A1C 5.4 % 4.8-5. 6 Predi abete s: 5.7 - 6.4 Diabe lloyd: >6.4 Glyce bunny contr ol for adult s with diabe lloyd: <7.0 Not Available [facility] ([facility]) [address] [facility], [place], [address], 03/27/2023 08:23:17 03/26/19 24 03/27/2023 TSH TSH 1.170 uIU/m L 0.450- 4.500 Not Available [facility] ([facility]) [address] [place], [address], 03/27/2023 08:23:18 03/26/19 24 03/27/2023 VALPR OIC ACID (DEPA KOTE) (R),S valproic acid (depakote)(R ),S 10 ug/mL 50-100 below low normal Detec tion Limit = 4 <4 indic ates None Detec isaura Toxic ity may occur at level s of 100-5 00. Measu remen ts of free unbou nd valpr oic acid may impro ve the asses s- ment of clini salomón respo nse. Not Available [facility] ([facility]) [address], [place], [address], 03/27/2023 08:23:19 03/27/19 24 03/27/2023 XR, knee No observ ation record ed. [facility] [address] [place], [address], 09/24/2023 15:22:55 03/27/19 24 03/27/2023 XR, lumbo sacra l spine No observ ation record ed. [facility] [address] [place], [address], 09/24/2023 15:22:55 Result Notes None recorded. Problems Name Problem SNOMED Code Status Onset Date Resolution Date Notes Provider Name and Address Organization Details Recorded Time Influenza vaccination declined 230255774 Active 2020 Not Available [facility] 4 05:55:32 SARS-CoV-2 mRNA vaccine declined 2521347556 Active 2021 Not Available [facility] 4 05:55:31 Obstructive sleep apnea syndrome 24700459 Active 2022 Not Available [facility] 4 05:55:32 Impacted cerumen 71241480 Active Not Available [facility] 4 05:55:31 Essential hypertension 74158313 Active Not Available [facility] 4 05:55:32 Overweight 391460733 Active Not Available [facility] 4 05:55:31 Seizure disorder 295948594 Active Not Available [facility] 4 05:55:31 Impaired fasting glycemia 576181372 Active Not Available [facility] 4 05:55:32 Hyperlipidem ia 55247469 Active Not Available [facility] 4 05:55:32 Problem Notes None recorded. Procedures Surgical History Date Name Laterality Status Provider Name and Address Organization Details Recorded Time 03/26/19 24 Generic Procedure completed Felton Geller MD Attn: Accounting,[address] [facility], [place], [address], [facility] - [facility] 03/26/2023 16:20:40 03/30/19 22 circumcision completed Felton Geller MD Attn: Accounting,[address] [facility], [place], [address], [place] - [facility] 04/05/2021 07:50:02 03/10/18 94 Other completed Leticia Gabriel MA [place] - [place] 09/13/2014 16:36:14 Imaging Results Imaging Date Name Status LastModified by Organiz ation Details LastModified Time 03/27/2023 XR, knee completed [facility] [address] [place], [address], 09/24/2023 15:22:55 03/27/2023 XR, lumbosacral spine completed [facility] [address] [place], [address], 09/24/2023 15:22:55 Procedure Notes None recorded. Medical Equipment None Reported. Allergies Allergen ID Allergen Name Allergen Category Reaction Reaction Severity Criticality Documentation Date Start Date Code Code System Note Provider Name and Address Organization Details Recorded Time [id number] diphenhyd ramine medicatio n dyspnea facial swelling Not available Not available high 11/18/2023 3498 RxNorm swell ing of face, dyspn ea Other react ions and sever ities : 'Adve rse react ion to subst ance' . -geno ncili ation Not Available Not Available Not Available [id number] Benadryl medicatio n other severe Not available 09/13/2014 08602 7 RxNorm swell ing of face and eyes; troub le breat agnieszka; gaspi ng for air Not Available Not Available Not Available Medications Name Sig Start Date Stop Date Status Note LastModified by Organization Details LastModified Time amoxicill in 500 mg capsule 01/22 completed Not Available Not Available Not Available divalproe x 250 mg tablet,de layed release Take1 tablet every other day active Not Available Not Available No t Available ibuprofen 800 mg tablet 01/22 completed Not Available Not Available Not Available fluconazo le 150 mg tablet TAKE 1 TABLET BY MOUTH EVERY DAY FOR 1 DAY DIRECTED 12/15 completed Not Available Not Available Not Available fluconazo le 200 mg tablet TAKE 1 TABLET BY MOUTH EVERY WEEK 09/23 completed Not Available Not Available Not Available prednison e 20 mg tablet TAKE 3 TABLETS BY MOUTH DAILY FOR 5 DAYS 11/05 completed Not Available Not Available Not Available Debrox 6.5 % ear drops Instill 5 drops twice a day by otic route for 4 days. 07/24 completed Not Available Not Available Not Available acetamino phen 300 mg-codein e 30 mg tablet 01/22 completed Not Available Not Available Not Available amlodipin e 5 mg tablet Take 1 tablet every day by oral route as directed for 30 days, for HTN. 2023 active Not Available Not Available Not Avai lable triamcino lone acetonide 0.1 % topical cream APPLY A THIN LAYER TO THE AFFECTED AREA(S) BY TOPICAL ROUTE 2 TIMES PER DAY 07/23 completed Not Available Not Available Not Available ketorolac 10 mg tablet 07/24 completed Not Available Not Available Not Available cephalexi n 500 mg capsule Take 1 capsule every 6 hours by oral route as directed for 7 days. 07/23 completed Not Available Not Available Not Available lisinopri l 10 mg tablet TAKE 1 TABLET BY MOUTH EVERY DAY DIRECTED active Not Available Not Available No t Available lisinopri l 20 mg-hydroc hlorothia zide 25 mg tablet TAKE 1 TABLET BY MOUTH EVERY DAY DIRECTED FOR HYPERTEN DERRICK active Not Available Not Available No t Available lisinopri l 5 mg tablet TAKE 1 TABLET BY MOUTH EVERY DAY DIRECTED 04/11 completed Increase d to 10 mg on 04/11/2022 Not Available Not Available Not Available hydrochlo rothiazid e 25 mg tablet TAKE 1 TABLET BY MOUTH DAILY active Not Available Not Available No t Available clotrimaz ole 1 % topical cream APPLY TOPICALL Y TO THE AFFECTED AND SURROUND ING AREAS TWICE DAILY IN THE MORNING AND IN THE EVENING 07/24 completed Not Available Not Available Not Available naproxen 500 mg tablet TAKE 1 TABLET BY MOUTH TWICE DAILY WITH FOOD active Not Available Not Available No t Available Triple Antibioti c 07/23 completed Not Available Not Available Not Available Vitals Date Recorded Body height Provider Name an d Address Organization Details Last Updated DateTime 10/22/2022 165.1 cm Sandhya Ricketts MA [facility] 023 15:54:31 Date Recorded Body mass index (BMI) Body weight Provider Name and Address Organization Details Last Updated DateTime 10/22/2022 43.9 kg/m2 057371.39 laurie Ricketts MA [facility] 10/22/2022 15:54:45 Date Recorded Oxygen saturation Oxygen saturation in Arterial blood by Pulse oximetry Provider Name and Address Organization Details Last Updated DateTime 10/22/2022 96 % 96 % Sandhya Ricketts LISA [facility] 10/22/2022 15:56:49 Date Recorded Respiratory rate Provider Name a nd Address Organization Details Last Updated DateTime 10/22/2022 16 /min Sandhya Delvallever LISA [facility] 023 15:56:50 Date Recorded Heart rate Provider Name an d Address Organization Details Last Updated DateTime 10/22/2022 92 /min Sandhya Ricketts LISA [facility] 023 15:56:56 Date Recorded Body height Provider Name an d Address Organization Details Last Updated DateTime 03/26/2023 165.1 cm Sandhyaher Jamarcus MA [facility] 024 14:54:06 Date Recorded Body mass index (BMI) Body weight Provider Name and Address Organization Details Last Updated DateTime 03/26/2023 42.2 kg/m2 866160.74 laurie Sandhya JamarcusLISA [facility] 03/26/2023 14:54:14 Date Recorded Oxygen saturation Oxygen saturation in Arterial blood by Pulse oximetry Provider Name and Address Organization Details Last Updated DateTime 03/26/2023 97 % 97 % Sandhya Ricketts LISA [facility] 03/26/2023 14:57:11 Date Recorded Heart rate Provider Name an d Address Organization Details Last Updated DateTime 03/26/2023 114 /min Sandhya Ricketts MA [facility] 14:57:12 Date Recorded Body temperature Provider Name a nd Address Organization Details Last Updated DateTime 03/26/2023 98 [degF] Sandhya Ricketts MA [facility] 024 14:59:25 Date Recorded Body height Provider Name an d Address Organization Details Last Updated DateTime 09/24/2023 165.1 cm Sandhya Ricketts MA [facility] 14:51:53 Date Recorded Body mass index (BMI) Provider Name and Address Organization Details Last Updated DateTime 09/24/2023 41.8 kg/m2 Sandhya Ricketts MA [facility] 14:51:57 Date Recorded Body weight Provider Name an d Address Organization Details Last Updated DateTime 09/24/2023 942517.4 g Sandhya Ricketts MA [facility] 024 14:51:58 Date Recorded Heart rate Provider Name an d Address Organization Details Last Updated DateTime 09/24/2023 104 /min Sandhya Ricketts [facility] 024 14:54:38 Date Recorded Oxygen saturation Oxygen saturation in Arterial blood by Pulse oximetry Provider Name and Address Organization Details Last Updated DateTime 09/24/2023 97 % 97 % Sandhya Ricketts MA [facility] 09/24/2023 14:54:40 Date Recorded Respiratory rate Provider Name a nd Address Organization Details Last Updated DateTime 09/24/2023 18 /min Sandhya Jamarcus, [facility] 024 14:54:42 Date Recorded Body height Provider Name an d Address Organization Details Last Updated DateTime 11/06/2023 165.1 cm Sandhya Ricketts MA [facility] 024 15:14:19 Date Recorded Body mass index (BMI) Body weight Provider Name and Address Organization Details Last Updated DateTime 11/06/2023 41.9 kg/m2 969983.84 g Sandhya Ricketts MA [facility] 11/06/2023 15:15:18 Date Recorded Heart rate Provider Name an d Address Organization Details Last Updated DateTime 11/06/2023 98 /min LISA Parsons [facility] 15:19:45 Date Recorded Oxygen saturation Oxygen saturation in Arterial blood by Pulse oximetry Provider Name and Address Organization Details Last Updated DateTime 11/06/2023 97 % 97 % LISA Parsons [facility] 11/06/2023 15:19:47 Date Recorded Respiratory rate Provider Name a nd Address Organization Details Last Updated DateTime 11/06/2023 16 /min Sandhya Ricketts MA [facility] 15:19:48 Date Recorded Body temperature Provider Name a nd Address Organization Details Last Updated DateTime 11/06/2023 98.3 [degF] Sandhya Ricketts MA [facility] 2023 15:20:18 Date Recorded Body height Provider Name an d Address Organization Details Last Updated DateTime 12/22/2023 165.1 cm Sandhya Ricketts MA [facility] 14:51:34 Date Recorded Body mass index (BMI) Body weight Provider Name and Address Organization Details Last Updated DateTime 12/22/2023 40.8 kg/m2 894859.13 g Sandhya Ricketts [facility] 12/22/2023 14:51:50 Date Recorded Heart rate Provider Name an d Address Organization Details Last Updated DateTime 12/22/2023 94 /min LISA Parsons [facility] 14:54:35 Date Recorded Oxygen saturation Oxygen saturation in Arterial blood by Pulse oximetry Provider Name and Address Organization Details Last Updated DateTime 12/22/2023 96 % 96 % Sandhya Ricketts MA [facility] 12/22/2023 14:54:37 Date Recorded Respiratory rate Provider Name a nd Address Organization Details Last Updated DateTime 12/22/2023 14 /min Sandhya Ricketts [place] [facility] 14:54:39 Date Recorded Systolic blood pressure Diastolic blood pressure Provider Name and Address Organization Details Last Updated DateTime 10/22/2022 140 mm[Hg] 80 mm[Hg] LISA [facility] 10/22/2022 15:56:46 Date Recorded Systolic blood pressure Diastolic blood pressure Provider Name and Address Organization Details Last Updated DateTime 10/22/2022 140 mm[Hg] 82 mm[Hg] Felton Geller MD Attn: Accounting,[address], [place], [address], [place] [facility] 10/22/2022 18:53:46 Date Recorded Systolic blood pressure Diastolic blood pressure Provider Name and Address Organization Details Last Updated DateTime 10/22/2022 138 mm[Hg] 80 mm[Hg] Felton Geller MD Attn: Accounting,[address], [place], [address], [place] [facility] 10/22/2022 18:54:10 Date Recorded Systolic blood pressure Diastolic blood pressure Provider Name and Address Organization Details Last Updated DateTime 03/26/2023 124 mm[Hg] 86 mm[Hg] Sandhya Ricketts [place] [facility] 03/26/2023 14:58:50 Date Recorded Systolic blood pressure Diastolic blood pressure Provider Name and Address Organization Details Last Updated DateTime 09/24/2023 140 mm[Hg] 90 mm[Hg] Sandhya Ricketts [place] [facility] 09/24/2023 14:54:28 Date Recorded Systolic blood pressure Diastolic blood pressure Provider Name and Address Organization Details Last Updated DateTime 11/06/2023 134 mm[Hg] 80 mm[Hg] Sandhya Ricketts [place] [facility] 11/06/2023 15:19:24 Date Recorded Systolic blood pressure Diastolic blood pressure Provider Name and Address Organization Details Last Updated DateTime 12/22/2023 120 mm[Hg] 68 mm[Hg] Sandhya Ricketts [place] [facility] 12/22/2023 14:54:26 Date Recorded Systolic blood pressure Diastolic blood pressure Provider Name and Address Organization Details Last Updated DateTime 12/22/2023 120 mm[Hg] 70 mm[Hg] Felton Geller MD Attn: Accounting,[address], [place], [address], [place] [facility] 12/22/2023 15:11:18 Social History Question Answer Notes LastModified by Organizat ion Details LastModified Time Tobacco Smoking Status Never Smoker LISA [place], [place] - [facility] 09/13/2014 16:36:14 What Is Your Level Of Alcohol Consumption? None Information not available 11/08/2020 What Is Your Level Of Caffeine Consumption? Occasional Information not available 11/08/2020 Do You Or Have You Ever Used E-cigarettes Or Vape? Never Used Electronic Cigarettes Information not available 10/01/2019 What Was The Date Of Your Most Recent Tobacco Screening? 12/22/2023 Information not available 12/22/2023 How Much Tobacco Do You Smoke? No Information not available 07/24/2016 Do You Use Any Illicit Or Recreational Drugs? No Information not available 11/08/2020 Has Tobacco Cessation Counseling Been Provided? No [email or web address] Information not available 09/30/2018 How Many Years Have You Smoked Tobacco? 0 Information not available 07/24/2016 Sex: Unknown Functional Status None recorded. Mental Status None recorded. Family History Nothing Reported. Medical History Condition Response High Blood Pressure Y Seizures/Epilepsy Y Immunizations Vaccine Type Date Status Note Provider Nam e and Address Organization Details Recorded Time Influenza, split virus, quadrivalent, preservative 6 completed Not Available [facility] 03/27/2019 02:43:39 Influenza, split virus, quadrivalent, preservative 7 completed Not Available [facility] 03/27/2019 02:43:06 Tdap 2 completed Not Available [facility] 03/29/2023 05:55:32 Influenza, split virus, quadrivalent, PF 8 completed Not Available [facility] 03/27/2019 02:36:56 Influenza, split virus, quadrivalent, preservative 0 completed LISA [place], [place] [facility] 04/02/2019 16:17:04 Past Encounters Encounter ID Performer Location Encounter Start Date Encounter Closed Date Diagnosis/Indication Diagnosis SNOMED-CT Code Diagnosis ICD10 Code Diagnosis Note [id number] [facility] (Adult Med) [address] [place] [address] 09/13/2014 15:47:46 09/13/2014 17:06:54 General examination of patient [id number] Labs needed to complete his PE form Impacted cerumen 08603287 Essential hypertension 20879541 Overweight 564953771 Seizure disorder 837644776 Seizure free, he follows up with Dr. 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 Seizure disorder 5272030 02 G40.909 Seizure free, he follows up with Dr. Morales Impacted cerumen 5632507 6 H61.22 [id number] MD [facility]ip Strauss (Adult Med) [address] [place] [id number] 0 01/30/2016 10:55:38 01/30/2016 11:52:45 Adult health examination 686195491 Z00.00 Benign hypertension 1072 5009 I10 Okay when rechecked Impacted cerumen 6099245 6 H61.22 Influenza vaccine needed 0385308126 106 Z23 [id number] MD Sandip Strauss (Adult Med) [address] [place] [address]22-074 0 07/24/2016 15:46:24 07/24/2016 16:24:47 Pain in both feet 7530864737 9541805 M79.671 M79.672 Congenital pes planus 23 879415 Q66.51 Q66.52 Hallux valgus 214639775 M20.11 M20.12 Benign hypertension 1072 5009 I10 Edema 807747519 R60.9 Seizure disorder 6900174 02 G40.909 Seizure free, he follows up with Dr. Morales [id number] MD [facility] Strauss (Adult Med) [address] [place] [id number] 0 01/22/2017 15:42:41 01/22/2017 16:28:04 Administration of influenza vaccine 59957619 Z23 Benign ess ential hypertension 2879063 I10 Physical examination 588 0005 Z04.9 [id number] MD Sandip Strauss (Adult Med) [address] [place] [address] [id number] 0 04/21/2017 15:35:17 04/21/2017 16:36:10 Pruritic rash 96777973 L28.2 Allergy, contact dermatitis , psoriasis with possible superinfec tion. [id number] MD Sandip Strauss (Adult Med) [address] [place] [address]32[address]753 0 07/23/2017 15:42:03 07/23/2017 17:27:22 Eruption 805074409 R21 Folliculit is vs Psoriasis Benign ess ential hypertension 9975473 I10 Physical examination 588 0005 Z04.9 His [employer] form was completed and handed back to his grandmothe r Seizure disorder 9585517 02 G40.909 Seizure free, he follows up with Dr. Morales [id number] MD Sandip Strauss (Adult Med) [address] [place] [address] [id number] 0 02/13/2018 16:07:40 02/13/2018 16:35:04 Administration of influenza vaccine 00795800 Z23 Seizure disorder 4764587 02 G40.909 Seizure free, he follows up with Dr. Morales Essential hypertension 78187760 I10 [id number] MD Sandip Strauss (Adult Med) [address] [place] [address] [id number] 0 08/14/2018 15:57:29 08/14/2018 17:07:03 Excessive thirst 73908221 R63.1 Polyuria 90789336 R35.8 Excessive sweating 13122 005 R61 General ex amination of patient 148782230 Z00.01 Labs needed to complete his PE form Medication monitoring 39 6237001 Z51.81 [id number] MD Sandip Strauss (Adult Med) [address] [place] [address] [id number] 0 09/30/2018 15:56:29 09/30/2018 16:22:37 Excessive thirst 93094691 R63.1 Resolved Laboratory test result abnormal 166246740 R89.9 High MCV Depression screening 171 776935 Z13.31 Body mass index 40+ - severely obese 165650149 Z68.41 [id number] MD Sandip Strauss (Adult Med) [address] [place] [address] [id number] 0 04/02/2019 15:45:25 04/02/2019 16:21:19 Administration of influenza vaccine 49140803 Z23 Seizure disorder 0765271 02 G40.909 Seizure free, he follows up with Dr. Morales Unintentio nal weight gain 2944584713 02245 R63.5 Body mass index 40+ - severely obese 535502701 Z68.41 Long-term drug therapy 104603013 Z79.942 [id number] Felton Geller MD [facility] (Adult Med) [address] [place] [address] [id number] 0 10/01/2019 14:10:16 10/04/2019 09:41:03 Seizure disorder 945686323 G40.909 Seizure free, he follows up with Dr. Morales Laboratory test result abnormal 267618921 R89.9 Low MCV [id number] Felton Geller MD [facility] (Adult Med) [address] [place] [address] [id number] 0 03/21/2020 07:49:58 03/22/2020 09:04:41 Seizure disorder 116963683 G40.909 Seizure free, he should follow up with Dr. Morales Essential hypertension 42618087 I10 Hyperlipidemia 69674711 E78.5 Discussed Influenza vaccination declined 270141333 Z28.21 [id number] Felton Geller MD [facility] (Adult Med) [address] [place] [address] [id number] 0 11/08/2020 09:35:13 11/09/2020 07:56:38 Seizure disorder 285097462 G40.909 Seizure free, he should follow up with Dr. Hatch rently switched by Dr Morales to once a day and he cannot get an appointmen t until January 2021 Essential hypertension 83112014 I10 Phimosis 794764296 N47.1 Urinary symptoms 8859976 08 R39.9 Vaccine de clined by patient 6170409484 02 Z28.21 The COVID vaccine was strongly recommende d, he refused HIV screening 650794908 Z11.4 Unintentio nal weight gain 6116948721 44427 R63.5 [id number] Luis Salazar MD [facility] [address] [place] [address] 12/15/2020 10:45:23 12/18/2020 11:52:42 Phimosis 194608934 N47.1 [id number] MD Sandip Strauss (Adult Med) [address] [place] [address] [id number] 0 12/20/2020 09:46:14 12/20/2020 10:46:51 Influenza vaccination declined 414880307 Z28.21 Vaccine de clined by patient 4016593632 02 Z28.21 The COVID vaccine was strongly recommende d, he refused Phimosis 706279480 N47.1 [id number] MD Sandip Strauss (Adult Med) [address] [place] [address] [id number] 0 07/24/2021 12:19:29 07/25/2021 07:03:47 Body mass index 40+ - severely obese 358132705 Z68.41 Medication monitoring 39 5260507 Z51.81 Essential hypertension 64248291 I10 Hyperlipidemia 59686905 E78.5 Discussed SARS-CoV-2 mRNA vaccine declined 5381990797 Z28.21 [id number] MD Sandip Strauss (Adult Med) [address] [place] [address] [id number] 0 01/22/2022 11:04:45 01/23/2022 16:07:00 Influenza vaccination declined 838695252 Z28.21 Body mass index 40+ - severely obese 512480665 Z68.41 Neuropathy 951574165 G62 .9 Essential hypertension 35201429 I10 Tachycardia 3184811 R00. 0 [id number] MD Sandip Strauss (Adult Med) [address] [place] [address] [id number] 0 03/07/2022 11:25:55 03/12/2022 13:34:54 Neuropathy 264798842 G62.9 Tachycardia 6689555 R00. 0 [id number] MD Sandip Strauss (Adult Med) [address] [place] [address] [id number] 0 04/11/2022 11:06:45 04/15/2022 12:18:04 Overweight 095880176 E66.3 Essential hypertension 61202208 I10 Slightly higher than usualIncre ase Lisinopril to 10 mgContinue HCTZ 25 mg Bilateral carpal tunnel syndrome 0038765232 9662597 G56.03 EMG/NCS done on 03/14/22 confirms bilateral CTSSome benefit derived from using the cock up splintsOrt ho appointmen t 05/24/2022 [id number] MD Sandip Strauss (Adult Med) [address] [place] [address] 53619-181 0 05/22/2022 15:11:23 05/23/2022 14:30:53 Obstructive sleep apnea syndrome 03797881 G47.33 Periodic l imb movement disorder 621432618 G47.61 Noted during his sleep study [id number] MD [facility]ip Srtauss (Adult Med) [address] [place] [address] [id number] 0 10/22/2022 15:44:06 10/23/2022 15:38:42 Essential hypertension 98371373 I10 Uncontroll edChange to Lisinopril /HCTZ 20/25, side effects including angioedema were discussed. OV 05/22/2022S lightly higher than usualIncre ase Lisinopril to 10 mgContinue HCTZ 25 mg General ex amination of patient 313885436 Z00.01 Obstructiv e sleep apnea syndrome 29087125 G47.33 [id number] MD Sandip Strauss (Adult Med) [address] [place] [address] 85176-510 0 03/26/2023 14:49:09 03/27/2023 16:24:58 Laboratory test result abnormal 865057385 R89.9 Low MCV Chronic back pain 019012 002 G89.29 Foot callus 436099858 L8 4 Influenza vaccination declined 137529036 Z28.21 Lumbar radiculopathy 128 314761 M54.16 Pain of le ft knee joint 6065475970 94851 M25.562 Body mass index 40+ - severely obese 273097953 Z68.41 Tachycardia 4509959 R00. 0 Medication monitoring 39 0253022 Z51.81 [id number] MD Sandip Strauss (Adult Med) [address] [place] [address] [id number] 0 09/24/2023 14:45:05 09/26/2023 16:22:36 Essential hypertension 21280404 I10 Uncontroll ed on Lisinopril /HCTZ 20/25I need to review his BP on his last cardiology visitHe may need a dose increase on his follow up visit. [id number] MD Sandip Strauss (Adult Med) [address] [place] [address] 02061-273 0 11/06/2023 14:59:34 11/07/2023 13:15:30 Essential hypertension 57207043 I10 Add Amlodipine 5 mg to the Lisinopril /HCTZ 20/25, side effects including edema, a headache and dizziness were discussed. OV 09/24/2023U ncontrolle d on Lisinopril /HCTZ 20/25I need to review his BP on his last cardiology visitHe may need a dose increase on his follow up visit. Upper resp iratory infection 33037019 J06.9 Lesion of scalp 47844677 91 00 L98.9 Cyst? [id number] MD Sandip Strauss (Adult Med) [address] [place] [address] 42349-354 0 12/22/2023 14:40:04 12/29/2023 12:50:40 Essential hypertension 59631291 I10 Stable on the current regimen, he appears to have falsely elevated ambulatory readings from his wrist BP monitor.Co ntinue Amlodipine and Lisinopril /HCTZ. OV 11/06/2023 dd Amlodipine 5 mg to the Lisinopril /HCTZ 20/25, side effects including edema, a headache and dizziness were discussed. OV 09/24/2023U ncontrolle d on Lisinopril /HCTZ 20/25I need to review his BP on his last cardiology visitHe may need a dose increase on his follow up visit. Health Concerns Section Related Observation LastModified by Organization Detai ls LastModified Time None Recorded Concern Status LastModified by Organization Details LastModified Time None Recorded Advance Directives Directive None Recorded Payers Encounter Date Sequence Insurance Name Policy Number Policy Eddy Covered Member ID Eddy Member ID Guarantor Name 10/22/2022 1 [facility] ON OR AFTER 09/07/20 (MEDICAID REPLACEMENT - HMO) Terence Romero [id number] Terence Romero 03/26/2023 1 [facility] ON OR AFTER 09/07/20 (MEDICAID REPLACEMENT - HMO) Terence Romero [id number] Terence Romero 09/24/2023 1 [facility] ON OR AFTER 09/07/20 (MEDICAID REPLACEMENT - HMO) Terence Romero [id number] Terence Romero 11/06/2023 1 [facility] ON OR AFTER 09/07/20 (MEDICAID REPLACEMENT - HMO) Terence Romero [id number] Terence Romero 12/22/2023 1 [facility] ON OR AFTER 09/07/20 (MEDICAID REPLACEMENT - HMO) Terence Romero [id number] Terence Romero Notes Date Note Type Note Provider Name and Address Organization Details Recorded Time 10/22/2022 text/html Hypertension F/UReported bypatient.Associat ed Symptoms:no dizziness; no lightheadedness; no chest pain; no shortness of breath; no palpitations; no edema; no calf pain with exertion Lifestyle:regular exercise; limiting/avoiding salt Medications:no side effects from medication; checks blood pressure at home, range: (132/72-146-85) Here with his grandmother He wears a CPAP now Mr Romero is doing well, he needs his [employer] form completed. Felton Geller MD Attn: Accounting[address] [place], [address], [facility] 10/22/2022 19:08:31 03/26/2023 text/html KneeReported bypatient.Location :left Quality:aching Severity:severe; pain level 0/10; worst pain 4/10 Duration:months Timing:chronic Alleviating Factors:nothing helps Aggravating Factors:sitting; exercise (Bowling) Associated Symptoms:no weakness; no numbness; no tingling; no swelling; no redness; no warmth; no ecchymosis; no catching/locking; no popping/clicking; no buckling; no grinding; no instability; no radiation down leg; no drainage; no fever; no chills; no weight loss; no change in bowel/bladder habits Previous Surgery:none Prior Imaging:none Previous Injections:none Previous PT:none Work Related:no Working:no Here with his grandmother Terence is living on his own now The pain goes into my knee, to my back. A couple of months now Terence returns, he has a possible history of spina bifida and contractures around the knees and lateral deviation of the right foot. He complains of pain from the anterior part of the left knee, radiating around the posterior part of the thigh to his lower back. The pain is worse when he sits or when he is bowling and there is no weakness. Felton Geller MD Attn: Accounting[address] [place], [address], [facility] 03/26/2023 16:23:40 09/24/2023 text/html Hypertension F/UReported bypatient.Associat ed Symptoms:no dizziness; no lightheadedness; no chest pain; no shortness of breath; no palpitations; no edema; no calf pain with exertion Lifestyle:regular exercise; limiting/avoiding salt Medications:taking medications as directed; no side effects from medication; checks blood pressure at home, range: (135/95) Just a check up Fully complaint with his medications and his CPAP. Felton Geller MD Attn: Accounting, [address] [place], [address], [facility] 09/24/2023 15:26:56 11/06/2023 text/html Here with a lady Fever Friday I have had a cyst months Terence has had symptoms of a URI for 5 days, he had a fever only on the first day. He also has a chronic raised scalp lesion Felton Geller MD Attn: Accounting, [address] [place], [address], [facility] 11/06/2023 18:58:59 12/22/2023 text/html Hypertension F/UReported bypatient.Associat ed Symptoms:no dizziness; no lightheadedness; no chest pain; no shortness of breath; no palpitations; no edema; no calf pain with exertion Lifestyle:regular exercise; limiting/avoiding salt Medications:taking medications as directed; no side effects from medication; checks blood pressure at home, range: (130/93-162/95) Compliant with all his medications Felton Geller MD Attn: Accounting,[address], [place], [address], [facility] 12/22/2023 15:19:44
[2024-04-07 11:14] LABS: Alanine Aminotransferase 17 U/L (6-50); Alkaline Phosphatase 64 U/L (38-126); Anion Gap 7 mmol/L (4-12); Aspartate Amino Transferase 18 U/L (17-59); Bilirubin,Total 0.5 mg/dL (0.2-1.3); Blood Urea Nitrogen 8 mg/dL (9-20); Calcium 8.7 mg/dL (8.4-10.2); Carbon Dioxide 30 mmol/L (22-30); Chloride 102 mmol/L (98-107); Estimated Glomerular Filt Rate > 60; Glucose 93 mg/dL (65-110); Potassium 4.1 mmol/L (3.4-5.0); Sodium 139 mmol/L (137-145)
[2024-04-07 12:19] LABS: Valproic Acid < 10.0 ug/mL (50-120)
== END 2024-04-07 10:08 | disposition home or self-care (01) ==
LOC: ANHLAB 10:08
PROVIDERS: PCP Internal Medicine Infectious Disease; Visit Provider Student in an Organized Health Care Education/Training Program
DX: G40.909 Epilepsy, unspecified, not intractable, without status epilepticus (principal)
CPT/HCPCS: 36415; 80053; 80164; 85025